=== PATIENT | female | born 1955 | race Caucasian/White ===

== ENCOUNTER → 2024-04-27 | Day surgery (SDC) | payer MEDICARE, OTHER | END | disposition home or self-care (01) | LOC: FMAMMOTONE 10:15 | PROVIDERS: ATTEND Internal Medicine | PROC: 0HBT3ZX Excision of Right Breast, Percutaneous Approach, Diagnostic (ICD-10-PCS; principal; 2024-04-27) | DX: D24.1 Benign neoplasm of right breast (principal); R92.1 Mammographic calcification found on diagnostic imaging of breast | CPT/HCPCS: 19081; 76098-TC-FY; 88305-TC ==

== ENCOUNTER 2024-05-29 19:36 | Emergency (ER) | payer MEDICARE, OTHER ==
[2024-05-29 19:47] VITALS: BP 159/84; PULSE 80; RESP 16; TEMP 98.6; BMI 26.2
== END 2024-05-29 22:40 | disposition home or self-care (01) ==
LOC: JER 19:36
DX: S00.83XA Contusion of other part of head, initial encounter (principal); W01.198A Fall on same level from slipping, tripping and stumbling with subsequent striking against other object, initial encounter
CPT/HCPCS: 70450-TC; 70486-TC; 72125-TC; 73110-TC-RT-FY; 73130-TC-RT-FY; 99284-25

== ENCOUNTER 2025-02-14 19:10 | Emergency (ER) | payer MEDICARE, OTHER ==
[2025-02-14 19:32] VITALS: TEMP 98.5; BMI 25.4
[2025-02-14 21:25] VITALS: BP 153/78; PULSE 88; RESP 16
[2025-02-14] MEDS ORDERED: IBUPROFEN 400 MG TABLET (FP) PO ONE (21:26)
[2025-02-14] MEDS ORDERED: METHOCARBAMOL 500 MG TABLET ONE (21:26)
[2025-02-14] MEDS: METHOCARBAMOL 500 MG TABLET PO ONE (21:30)
[2025-02-14] MEDS: IBUPROFEN 400 MG TABLET (FP) PO ONE (21:31)
== END 2025-02-14 22:55 | disposition home or self-care (01) ==
LOC: JER 19:10
DX: M79.602 Pain in left arm (principal); M25.512 Pain in left shoulder
CPT/HCPCS: 93005; 93010; 99283-25